=== PATIENT | female | born 1960 | race African-American/Black ===

== ENCOUNTER 2018-12-21 04:20 | Emergency (ER) | payer MEDICAID ==
[~2018-12-21] VITALS: Ht 165.1 cm; Wt 99.8 kg
[~2018-12-21 04:20] MED LIST: ACET-1603; AMITRIP; AMLO10TA12; ATEN100T53; FLUC200T35; LISINOPRIL; PHEN100C70; PREDPOW63; TRIA25CA; [UNRECOGNIZED DRUG - REMARK]
[2018-12-21] MEDS ORDERED: cloNIDine HCL 0.1 MG TAB PO ONE ×2 (04:45→06:45)
[2018-12-21] MEDS ORDERED: cloNIDine HCL 0.1 MG TAB ONE (06:15)
[2018-12-21 07:20] VITALS: BP 179/90
== END 2018-12-21 07:20 ==
LOC: ER 04:20
DX: I10 Essential (primary) hypertension (principal); F17.210 Nicotine dependence, cigarettes, uncomplicated; Z90.49 Acquired absence of other specified parts of digestive tract; Z90.710 Acquired absence of both cervix and uterus; Z88.1 Allergy status to other antibiotic agents; Z88.0 Allergy status to penicillin
CPT/HCPCS: 82962